=== PATIENT | female | born 1980 | race Caucasian/White ===

== ENCOUNTER 2025-04-01 22:58 | Inpatient (IN) | payer BC, SELFPAY ==
--- NOTE | ~2025-04-01 | MR_ITS ---
EXAMINATION: MR MRCP wo/w con/w 3D wo ind DATE: 04/03/2025 12:30 INDICATION: Assess for pancreatic intraductal papillary mucinous neoplasm TECHNIQUE: Magnetic resonance imaging (MRI) of the abdomen was performed without and with 15 mL Multihance intravenous contrast. Sequences included coronal T2- weighted SS-FSE, coronal T2-weighted FS SS-FSE, coronal T2-weighted FS FIESTA, axial T2-weighted FS FIESTA, axial T2-weighted FIESTA, sagittal T2-weighted SS- FSE, axial T1-weighted dual-echo FSPGR, axial T2-weighted SS-FSE, axial T1- weighted LAVA, axial T2-weighted STIR FSE. Thick-slab T2-weighted FRFSE-XL images were obtained for magnetic resonance cholangiopancreatography (MRCP). Rotating maximum intensity projection 3-D reconstructions of the volumetric data were created by the technologist. Postcontrast sequences included a time course of axial T1-weighted LAVA. COMPARISON: CT dated 04/02/2025 FINDINGS: ABDOMEN MRI: Heart size is normal. No pericardial or pleural effusion. Liver, gallbladder, spleen, bilateral adrenal glands and kidneys are normal. There is prominent peripancreatic edema consistent with acute interstitial pancreatitis. The retroperitoneal edema extends inferiorly and laterally along the bilateral anterior pararenal spaces with moderate left-sided and mild right-sided perinephric stranding. Pancreas remains normal with homogeneous parenchymal enhancement with no regions of necrosis. No discrete pancreatic lesions with no loculated acute peripancreatic fluid collections or abscess. Visualized portions of bowels are unremarkable. No pathologically enlarged abdominal lymphadenopathy. 15 degree thoracolumbar levoscoliosis. Bone marrow signal is normal throughout. ABDOMEN MRCP: No intrahepatic biliary ductal dilation. The common bile duct is also normal in caliber measuring up to 3 mm in maximal diameter with no evident choledocholithiasis. Main pancreatic duct is also normal in caliber. IMPRESSION: 1. Radiographically uncomplicated acute interstitial pancreatitis. Reviewed, dictated and finalized at location A.
--- NOTE | ~2025-04-01 | US_ITS ---
US abdomen limited EXAMINATION: US Abdomen limited INDICATION: Rule out biliary sludge PROCEDURE: Realtime High Resolution abdomen ultrasound. COMPARISON: No prior studies for comparison FINDINGS: Hepatopedal flow in the portal vein. Gallbladder wall is not thickened. Common duct measures 2.4 cm. No Post's sign. Liver measures 14.9 cm. Visualized pancreas is unremarkable. Visualized liver is unremarkable. No bowel wall thickening. No sludge identified in the gallbladder. IMPRESSION: 1. Unremarkable study. If symptoms persist or worsen, consider a short-term follow-up study or additional imaging for further assessment. Reviewed, dictated and finalized at location Q. IMPRESSION: 1. Unremarkable study. If symptoms persist or worsen, consider a short-term follow-up study or additio nal imaging for further assessment.
--- NOTE | ~2025-04-01 | CT_ITS ---
EXAMINATION: CT abdomen pelvis w con DATE: 04/02/2025 00:56 INDICATION: Right upper quadrant pain. Nausea and vomiting. TECHNIQUE: Computed tomography (CT) of the abdomen and pelvis was performed with 100 cc Omnipaque 350 intravenous contrast. The dose-length product was 235.44 mGy-cm. Automated exposure control and iterative reconstruction technique were employed. COMPARISON: None. FINDINGS: Lung bases unremarkable. Heart size normal. No significant pleural or pericardial effusion. The liver, spleen, kidneys and adrenal glands are unremarkable. There is mild pancreatitis. No pseudocyst or abscess formation. Nonobstructive bowel gas pattern. No lymphadenopathy. No significant vascular abnormality. Fatty infiltration of the liver. IMPRESSION: 1. Mild acute uncomplicated pancreatitis. Reviewed, dictated and finalized at location O.
[2025-04-01 23:01] VITALS: BP 127/80; PULSE 78; RESP 20; TEMP 36.1; O2SAT 98
--- NOTE | 2025-04-01 23:11 | ECG_ITS ---
Test Date: 2025-04-01 23:24:23 Measurements Intervals [place] Rate: 73 P: 133 UT: 140 QRS: 123 QRSD: 88 T: 123 QT: 373 QTc: 412 Interpretive Statements SINUS RHYTHM WITH SINUS ARRHYTHMIA LIMB LEAD REVERSAL POSSIBLE RIGHT VENTRICULAR CONDUCTION DELAY BORDERLINE T WAVE ABNORMALITY- ANTERIOR LEADS BASELINE ARTIFACT- I, III, AVR, AVL, AVF BORDERLINE ECG No previous ECG available for comparison Electronically Signed On 04-02-2025 06:40:14 CDT by Timmy Vaz D.O.
[2025-04-01 23:15] VITALS: BP 123/77; PULSE 72; RESP 12; O2SAT 100
[2025-04-01 23:18] LABS: Hematocrit 40.4 % (37.0-47.0); Hemoglobin 13.3 g/dL (12.0-15.0); Immature Granulocyte Percent A 0.4 % (0-0.5); Lymphocytes Absolute Auto 3.04 K/mm3 (0.9-3.2); Mean Corpuscular HGB Conc 32.9 g/dl (32-36); Mean Corpuscular Hemoglobin 31.1 pg (26-34); Mean Corpuscular Volume 94.6 fl (80-100); Nucleated Red Blood Cells Absolute Auto 0.000 K/mm3 (0.0-0.012); Nucleated Red Blood Cells Perc 0.0 % (0.0-0.2); Platelet Count Result 377 k/mm3 (150-375); Red Blood Count 4.27 M/mm3 (4.2-5.4); White Blood Count 13.3 K/mm3 (4.5-10.0)
[2025-04-01 23:28] LABS: Alanine Aminotransferase 18 U/L (6-35); Albumin Level 4.0 g/dL (3.5-5.1); Alkaline Phosphatase 48 U/L (38-126); Anion Gap 7 mmol/L (4-12); Aspartate Amino Transferase 31 U/L (14-36); Bilirubin,Total 0.3 mg/dL (0.2-1.3); Blood Urea Nitrogen 16 mg/dL (7-17); Calcium 9.3 mg/dL (8.4-10.2); Carbon Dioxide 28 mmol/L (22-30); Chloride 101 mmol/L (98-107); Estimated CRCL calculation 63 ml/min; Estimated Glomerular Filt Rate > 60; Glucose 123 mg/dL (65-110); Magnesium 1.8 mg/dL (1.6-2.3); Potassium 3.9 mmol/L (3.4-5.0); Sodium 136 mmol/L (137-145); Total Protein 7.1 g/dL (6.3-8.2)
[2025-04-01 23:30] VITALS: BP 141/88; PULSE 66; RESP 18; O2SAT 100
--- OUTSIDE RECORDS SUMMARY | 2025-04-01 23:35 | XMS_ITS | Clinical Summary ---
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 Gender Identity Not on file Sexual Orientation Not on file Plan of Treatment Health Maintenance Due Date Last Done Comments Hepatitis C Virus (HCV) Screening 1981 TdaP Immunization 1981 Hepatitis B Immunization (1 of 3 - 19+ 3-dose series) 2000 Pap Smear 2002 Human Papillomavirus (HPV) Immunization (1 - 3-dose SCDM series) 2008 Cervical Cancer Screening (CCS) 2011 HPV/Cotest 2011 SARS-COV-2 Immunization ( season) 2024 Influenza Immunization (#1) 04/07/202506/07, 06/14/2018, 06/15/2017, Additional history exists Respiratory Syncytial Virus (RSV) Immunization (Adult) (1 - 1-dose 75+ series) 2056 Meningococcal Immunization (ACWY) Aged Out No longer eligible based on patient's age to complete this topic Pneumococcal Immunization Combined Aged Out No longer eligible based on patient's age to complete this topic Rotavirus Immunization Aged Out No lo nger eligible based on patient's age to complete this topic
--- OUTSIDE RECORDS SUMMARY | 2025-04-01 23:35 | XMS_ITS | Clinical Summary ---
Author Organization [facility] [employer] Address [address] [place] [address] Care Team Providers Care Sawsmith Name Role Phone Tre Mcgowan MD Primary Care Provider [phone] Source Comments [facility],non-owned Affiliates and Associated Physician Practices is amultiple site organization consisting of ambulatory clinics and hospital sitesin [place], [place], [place] and [place]. This disclosure is being madepursuant to the Care Everywhere program and may not contain all information available regarding this patient. Last updated 18.[facility] [employer] Allergies Active Allergy Reactions Criticality Noted Date Comments Sulfa Drugs Urticaria Medium 10/08/2018 Medications * Be aware that medications may not be up to date on this document. Alwaysverify current medications with the patient. folic acid (FOLVITE) 1 MG tablet Take 1 mg by mouth once daily 9 Active LARISSIA 0.1-20 MG-MCG tablet 9 Active SYNTHROID 50 MCG tablet Take 50 mcg by mouth daily before breakfast 9 Active VYVANSE 20 MG capsule Take 20 mg by mouth every morning 9 Active VITAMIN D, CHOLECALCIFEROL , PO Take 1,000 Units by mouth once daily Active Cyanocobalamin (B-12) 100 MCG Take 100 mcg by mouth once daily Active Probiotic Product (ALIGN PO) Take 1 tablet by mouth once daily Active ferrous sulfate 325 (65 FE) MG tabletIndicatio ns:Other iron deficiency anemia Take 1 tablet by mouth daily with breakfast 30 tablet 2 9 Active Active Problems Problem Noted Date Diagnosed Date Intestinal malabsorption 10/08/2018 Epigastric abdominal pain 10/08/2018 Normocytic anemia 10/08/2018 Malignant neoplasm of ovary 10/08/2018 Gastroesophageal reflux disease without esophagi tis 10/08/2018 Resolved Problems Problem Noted Date Diagnosed Date Resolved Date Diarrhea 10/08/2018 11/05/2018 Family History Medical History Relation Name Comments Thyroid Disease Maternal Grandmother Arthritis - Rheumatoid Mother Lupus Mother Sjogren's Syndrome Mother Thyroid Disease Mother Goitre, s/p thyroid surgery. Hashimatos. 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 Gender Identity Not on file Sexual Orientation Not on file Last Filed Vital Signs Vital Sign Reading Time Taken Comments Blood Pressure 110/70 10/19/2018 10:13 AM CDT Pulse 73 10/12/2018 12:23 PM FREELANCE OPERATOR Temperature 36.4 C (97.6 F) 10/19/2018 10:13 AM CDT Respiratory Rate 12 10/19/2018 10:13 AM CDT Oxygen Saturation 100% 10/12/2018 12:23 PM FREELANCE OPERATOR Inhaled Oxygen Concentration - - Weight 51.3 kg (113 lb 1.6 oz) 10/19/2018 10:13 AM CDT Height 166.4 cm (5' 5.5) 10/19/2018 10:13 AM CD T Body Mass Index 18.53 10/19/2018 10:13 AM CDT Plan of Treatment Health Maintenance Due Date Last Done Comments LIPID TESTING 1981 MAMMOGRAM 1981 HIV SCREENING 1996 HEPATITIS C SCREENING 09/10/1999 DTAP/TDAP/TD VACCINES (1 - Tdap) 2000 HEPATITIS B VACCINE (1 of 3 - 19+ 3-dose series) 2000 HPV VACCINE (1 - 3-dose SCDM series) 2008 COVID-19 VACCINE ( - 2023-25 season) 2024 DEPRESSION SCREENING 08/07/2024 INFLUENZA VACCINE (#1) 2025 8, 06/15/2017, 07/09/2015, Additional history exists ZOSTER VACCINE (1 of 2) 2031 HIB VACCINE Aged Out No longer eligi ble based on patient's age to complete this topic MENINGOCOCCAL (Group B) VACCINE SHARED DECISION-MAKING Aged Out No longer eligible based on patient's age to complete this topic MENINGOCOCCAL GROUPS A/C/Y/W VACCINE Aged Out No longer eligible based on patient's age to complete this topic PNEUMOCOCCAL VACCINE Aged Out No long er eligible based on patient's age to complete [place] [address] [place] [address] [facility] Care Teams Sawsmith Relationship Specialty Start Date End Date Tre cMgowan MD PCP - General 10/08/18
--- OUTSIDE RECORDS SUMMARY | 2025-04-01 23:35 | XMS_ITS | Clinical Summary ---
Author Organization [facility] [address] Address [address] [facility] [place] [address] Care Team Providers Care Home Paraprofessional Name Role Phone Tre Mcgowan MD Primary Care Provider [phone] Joya Rae MD Unavailable [phone] Allergies Active Allergy Reactions Criticality Noted Date Comments Gluten Stomach upset Low 05/21/2019 Stomach/GI Upset Sulfa (Sulfonamide Antibiotics) Hives High 10/24/2009 Medications Synthroid 50 mcg tablet TAKE 1 TABLET BY MOUTH EVERY DAY DIRECTED 30 tablet 3 1 Active Vyvanse 30 mg capsule 0 3 Active multivitamin tabletIndications: Vitamin Deficiency Prevention Take 1 tablet by mouth Active L norgest/e.estradio L-e.estrad 0.1 mg-20 mcg (84)/10 mcg (7) tablets,dose pack,3 monthIndications:E ncounter for routine examination for contraception Take 1 tablet by mouth daily 84 tablet 4 4 Active Active Problems No known active problems Surgical History Surgery Date Site/Laterality Comments LEFT OOPHORECTOMY 09/07/2011 - 10/05/2011 L/s LSO seromucinous borderline tumor Medical History Medical History Date Comments Celiac disease 09/2018 Family History Medical History Relation Name Comments No Known Problems Father Dayna's thyroiditis Mother Lupus Mother Rheum arthritis Mother Sjogren's syndrome Mother Cancer Other 1 Reported Family History Of Cancer - PGM (Added by TW Conv) Thyroid disease Other 2 Thyroid Diso rder - Mother (Added by TW Conv) Relation Name Status Comments Father Alive Mother Alive Other 1 Other 2 Alive Social History Tobacco Use Types Packs/Day Years Used Date Smoking Tobacco: Former Passive Smoke Exposure: Never Smokeless Tobacco: Never Tobacco Cessation:Counseling Given: Not Answered Comments No Sex and Gender Information Value Date Recorded Sex Assigned at Not on file 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 Comments:No observed a nomalies 014 Term 38w 4d 2h 35m/1h 01m/ 2.693 kg (5 lb 15 oz) F Vag-S pont Epidur al N Livin g 9 10 BROWN ,GIRL 1JESS ICA Delivery Location:[facility] Comments:No observed a nomalies Comments 10/25/09 Blu HK @36w3 d, spont labor. No lac. 01/18/14 Mitchel Coffey HK@38.4wks, spont labor. 5-15lbs. Did great! Last Filed Vital Signs Vital Sign Reading Time Taken Comments Blood Pressure 116/78 05/17/2024 11:10 AM CDT Pulse 92 07/15/2020 10:26 AM TIME CLOCK REPAIRER Temperature 36.8 C (98.2 F) 07/15/2020 10:26 AM TIME CLOCK REPAIRER Respiratory Rate - - Oxygen Saturation 100% 07/15/2020 10:26 AM TIME CLOCK REPAIRER Inhaled Oxygen Concentration - - Weight 60.3 kg (133 lb) 05/17/2024 11:10 AM CDT Height 165.1 cm (5' 5) 05/17/2024 11:10 AM CDT Body Mass Index 22.13 05/17/2024 11:10 AM CDT Plan of Treatment Health Maintenance Due Date Last Done Comments Depression Screening 1981 Hepatitis C Screening 1981 Varicella Vaccines (1 of 2 - 13+ 2-dose series) 1994 Hepatitis B Screening 1999 HPV Vaccines (1 - 3-dose SCDM series) 2008 DTaP/Tdap/Td Vaccine (2 - Td or Tdap) 01/20/2024 01/19/2014 Covid-19 Vaccine ( season) 2024 06/11/2021, 11/23/2020, 11/02/2020 Breast Cancer Screening-Mammogram 07/04/2024 07/04/2023, 12/02/2021 Influenza Vaccine (#1) 2025 , 06/08/2022, 06/03/2021, Additional history exists Cervical Cancer Screening 05/17/20252023, 11/21/2022, 11/11/2021 Regular Well Visit/Exam 18-64 05/17/2025 05/17/2024, 11/21/2022, 11/11/2021 Pneumococcal vaccine <65 Aged Out No longer eligible based on patient's age to complete this topic Procedures Procedure Name Priority Date/Time Associated Diagnosis Comments THINPREP IMAGING PAP AND HPV MRNA E6/E7 REFLEX HPV 16,18/45 Routine 05/17/2024 11:28 AM CDT Routine gynecological examination SCREENING MAMMOGRAM BILATERAL W DAVID Schedule Routine, Read Routine (OP Routine) 07/04/2023 11:44 AM TIME CLOCK REPAIRER Screening mammogram, encounter for from Last 3 Months or Most Recently Relevant to Health Maintenance Results * ThinPrep(R) Imaging Pap and HPV mRNA E6/E7 Reflex HPV 16,18/45 (05/17/2024 11:28 AM CDT) CLINICAL INFORMATION: [facility] Comment:43Y/O WWE LMP [facility] Comment:NONE GIVEN Previous Pap [facility] Comment:NONE GIVEN Prev. Bx [facility] Comment:NONE GIVEN SOURCE: [facility] Comment:None given Pap, specimen adequacy [facility] Comment: Satisfactory for evaluation. Endocervical/transformation zone component absent. Age and/or menstrual status not provided HPV interp [facility] Comment: Cytology Results: Negative for intraepithelial lesion or malignancy. COMMENTS [facility] Comment: This Pap test has been evaluated with computer assisted technology. Quick [employer] Comment: LM, CT(ASCP) CT screening location: [place] [address] [address] [place] [address] Comment [facility] Comment: EXPLANATORY NOTE: The Pap is a screening test for cervical cancer. It is not a diagnostic test and is subject to false negative and false positive results. It is most reliable when a satisfactory sample, regularly obtained, is submitted with relevant clinical findings and history, and when the Pap result is evaluated along with historic and current clinical information. Human papillomavirus RNA, High Risk E6/E7 Not Detected Not Detected [facility] Comment: Methodology: Gill Box Tender-Mediated Amplification This assay detects E6/E7 viral messenger RNA (mRNA) from 14 high-risk HPV types (16,18,31,33,35,39,45,51,52,56,58,59,66,68). Cervical sources are required for HPV testing. If a vaginal source from a patient who has had a total hysterectomy with removal of cervix was submitted, please contact the testing laboratory for alternative testing options. For additional information, please refer to http://education.INRIX/faq/BVK344x3 (This link if provided for information/ educational purposes only.) Swab (Cervical) 05/17/2024 1 1:28 AM CDT 05/17/2024 11:45 PM CDT us Joya Rae MD LAB CYTOLOGY ORDERABLES F inal Result [facility] [address] [address] [place] [address] [facility] [address] [address] [phone] * Screening Mammogram Bilateral W David (07/04/2023 11:44 AM TIME CLOCK REPAIRER) Anatomical Region Laterality Modality Breast Bilateral Mammography Narrative 07/04/2023 1:47 PM TIME CLOCK REPAIRER Examination: Screening Mammogram Bilateral W David: 07/04/23 Clinical: Screening mammogram, encounter for. Prior Study Comparisons: Comparison was made to the prior available relevant studies at the time of interpretation. Findings: Bilateral No significant masses, malignant type calcifications, skin thickening, nipple retraction, or significant lymphadenopathy is noted in either breast. The CAD review showed no significant findings. The breasts are heterogeneously dense, which may obscure small masses. The patient will be notified of results by letter. Impression: BI-RADS ATLAS category (overall): 1 - Negative There is no mammographic evidence of malignancy. Routine Screening Mammogram in 1 Yr is recommended for bilateral Overall Assessment: 1 - Negative us Self Screening Mammogram IMG MAMMO PROCEDURES Fi nal Result from Last 3 Months or Most Recently Relevant to Health [place] [address] [place] [address] [place] [address] [place] [address] [employer] Care Teams Home Paraprofessional Relationship Specialty Start Date End Date Tre Mcgowan [place] [address] PCP - General 07/15/20 [place] [address] [place] [address] Consulting Physician Obstetrics and Gynecology 10/05/21
--- OUTSIDE RECORDS SUMMARY | 2025-04-01 23:35 | XMS_ITS | Clinical Summary ---
Author Organization [facility] Address [address] [place] [phone] Phone Care Team Providers Care Tutoring Assistant Name Role Phone Unavailable Primary Care Provider Unavailabl e Allergies Active Allergy Reactions Criticality Noted Date Comments Sulfa (Sulfonamide Antibiotics) Hives High 10/06 Medications vit-iron fumarate-fa (SHRUTI ) 28-0.8 mg Oral Tab Take 1 Tab by mouth daily. Active oxyCODONE-aceta minophen (PERCOCET) 5-325 mg tablet Take 1 Tab by mouth every 4 hours as needed for Pain, Moderate (For Pain Scale 4-6). 30 Tab 0 01/19/2014 Active ibuprofen (MOTRIN) 600 mg tablet Take 1 Tab by mouth every 6 hours as needed for Pain. 60 Tab 0 01/19/2014 Active docusate sodium (COLACE) 100 mg capsule Take 1 Cap by mouth 2 times daily. 60 Cap 0 01/19/2014 Active Active Problems Problem Noted Date Diagnosed Date Labor, O+, GBS neg, Hx of Ovarian CA 2011 [place]: bsus: DREW 12 cm, LR, gen diet, repeat drew in am 12/26/2013 Ovarian mass 09/07/2011 Immunizations Immunization Administration Dates Next Due (ADACEL/BOOSTRIX)(10 YR UP) TDAP VACCINE, 0.5ML, IM 01/19/2014 Influenza A (H1N1) Vaccine IM 05/25/2009 Influenza Seasonal Unspecified Formulation IM ,06/29/2009 Family History Medical History Relation Name Comments Healthy Daughter Healthy Father Arthritis-rheumatoid Maternal Aunt Arthritis-rheumatoid Mother SLE Mother Thyroid Disease Mother Relation Name Status Comments Daughter Alive Father Alive Maternal Aunt Mother Alive Other Social History Tobacco Use Types Packs/Day Years Used Date Smoking Tobacco: Never Smokeless Tobacco: Never Alcohol Use Standard Drinks/Week Comments No 0 (1 standard drink = 0.6 oz pur e alcohol) Comments No Sex and Gender Information Value Date Recorded Sex Assigned at Not on file 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 Gender Identity Not on file Sexual Orientation Not on file Occupation Industry Job Start Date Job End Date Not on file Not on file Not on file Not on file Not on file Not on file Not on file Not on file Last Filed Vital Signs Vital Sign Reading Time Taken Comments Blood Pressure 106/64 01/20/2014 7:30 AM CDT Pulse 66 01/20/2014 7:30 AM CDT Temperature 36.7 C (98 F) 01/20/2014 7:30 AM CDT Respiratory Rate 18 01/20/2014 7:30 AM CDT Oxygen Saturation 100% 01/18/2014 1:53 AM CDT Inhaled Oxygen Concentration - - Weight 65.8 kg (145 lb) 01/18/2014 1:25 AM CDT Height 167.6 cm (5' 6) 01/18/2014 1:25 AM CDT Body Mass Index 23.4 01/18/2014 1:25 AM CDT Plan of Treatment Health Maintenance Due Date Last Done Comments HEPATITIS B VACCINES (1 of 3 - 19+ 3-dose series) 2000 HPV/Cotest (21-29) 2002 HPV VACCINES (1 - 3-dose SCDM series) 2008 CERVICAL CANCER SCREENING 2011 HPV/Cotest (30-65) 2011 PAP SMEAR 2011 BREAST CANCER SCREENING 2021 DTAP/TDAP/TD VACCINES (2 - Td or Tdap) 01/20/2024 INFLUENZA VACCINE (#1) 2025 09/13/2013, 2008 Medical Devices Implanted Type Area Sheet Rock Finisher Device Identifier Shelf Expiration Date Model / Serial / Lot Barrier Interceed Adh 3x4in [id number] Implanted:Qty: 1 on 09/07/2011 by Joya Rae MD at [facility] [employer]ion Barrier [employer] 02/04/2016 [id number] / / [id number] Insurance [facility] OPTIONS PPO [id number] Advance Directives For more information, please contact: [phone] * Full Code (Latest Code Status on File) Date Activated Date Inactivated Comments 01/18/2014 5:48 AM 01/20/2014 1:29 PM * Full Code Date Activated Date Inactivated Comments 01/18/2014 2:18 AM 01/18/2014 5:47 AM * Full Code Date Activated Date Inactivated Comments 09/07/2011 11:13 AM 09/07/2011 5:37 PM * Full Code Date Activated Date Inactivated Comments 09/07/2011 9:05 AM 09/07/2011 11:13 AM * Full Code Date Activated Date Inactivated Comments 09/07/2011 8:35 AM 09/07/2011 9:05 AM
[2025-04-01 23:45] VITALS: BP 129/86; PULSE 73; RESP 17; O2SAT 100
[2025-04-01] MEDS: SODIUM CHLORIDE 0.9% IV 1,000 ML 999 ML IV CONT (23:56)
[2025-04-01] MEDS: ONDANSETRON INJ 4 MG/2 ML VIAL IV PUSH (23:56)
[2025-04-01] MEDS: MORPHINE SULFATE (*CRX) 4 MG/ML INJ IV PUSH (23:57)
[2025-04-02] VITALS (12 sets, daily range): BP systolic 105–127; BP diastolic 63–85; PULSE 61–83; RESP 12–19; TEMP 36.3–36.5; O2SAT 99–100; BMI 22.4
--- NOTE | 2025-04-02 00:13 | ED.ABDPAIN ---
HPI - Abdominal Pain General Chief Complaint: Abdominal Pain Stated Complaint: abd. pain w/ N/V Time Seen by Provider: 04/01/25 23:11 History of Present Illness HPI narrative: Patient is a 44-year-old female who presents emergency department this evening complaining of severe abdominal pain which started today. Denies any similar symptoms in the past. Denies any history of abdominal surgeries. When asked where the pain is, patient is unable to localize it states everywhere. Patient admits to nausea, vomiting and some loose stools as well. Denies any sick contacts at home or anybody with similar symptoms. No recent illness or fevers or chills. Related Data Allergies Allergy/AdvReac Type Severity Reaction Status Date / Time Sulfa (Sulfonamide Allergy Mild Hives Verified 04/01/25 23:56 Antibiotics) Review of Systems Review of Systems: All systems are reviewed and are negative unless stated otherwise in the HPI. Exam Narrative: General: Alert, awake, afebrile, in severe distress secondary to pain. HEENT: PERRL, no rhinorrhea, no post nasal drip, oropharynx clear. Neck: Trachea midline, no JVD, no lymphadenopathy. Cardiovascular: Regular rate and rhythm, no murmurs, rubs or gallops, no peripheral edema. Respiratory: Clear to auscultation bilaterally, no tachypnea, no wheezing, no rhonchi, no rubs, no respiratory distress. Abdomen: Soft, tenderness palpation over the mid epigastric region, nondistended, no rebound, no guarding, no peritoneal signs. Musculoskeletal: No joint swelling or deformity, normal muscle tone. Skin: No rashes or petechia, no signs of infection. Psychiatric: Alert and oriented, normal behavior and judgment for situation. Neurological: Alert and oriented to person, place, and time. Follows all commands. No focal deficits, speech is clear and fluent. Course Vital Signs Vital signs: Vital Signs Temperature 97.0 F L 04/01/25 23:01 Pulse Rate 78 04/01/25 23:01 Respiratory Rate 20 04/01/25 23:01 Blood Pressure 127/80 04/01/25 23:01 Pulse Oximetry 98 04/01/25 23:01 Oxygen Delivery Room Air 04/01/25 23:01 Temperature 97.0 F L 04/01/25 23:01 Pulse Rate 78 04/01/25 23:01 Respiratory Rate 20 04/01/25 23:01 Blood Pressure 127/80 04/01/25 23:01 Pulse Oximetry 98 04/01/25 23:01 Oxygen Delivery Room Air 04/01/25 23:01 MDM - Abdominal Pain MDM Narrative Medical decision making narrative: The patient was evaluated by myself in the emergency department. History is obtained from patient who is an independent historian and physical exam was performed. External medical records were reviewed at this time. IV was established and pertinent tests were ordered. Patient was administered 4 mg of IV morphine 4 mg IV Zofran 1 L IV fluid bolus with normal saline. Patient continues to have pain at this time she was administered 20 mg IV Pepcid and 20 mg of IM Bentyl with some improvement of her symptoms. She also administered 0.5 mg of IV Dilaudid. Laboratory results obtained revealing a leukocytosis of 13.3 and a lipase level greater than 40,000 otherwise unremarkable. At this time a triglyceride level was added and was noted to be normal at 104. Imaging studies obtained included CT abdomen pelvis with IV contrast which was independently interpreted by me revealing acute pancreatitis, which is pending final radiology interpretation. Differential diagnosis considerations include cholecystitis, pancreatitis, gastritis, appendicitis. Comorbidities impacting this visit include none. I have evaluated and discussed social determinants of health with the patient that could potentially impact subsequent diagnosis and treatment plans. On repeat assessment of the patient, reevaluation revealed that the patient is doing well and is in no acute distress. Patient symptoms have improved since she arrived to our emergency department. Repeat vital signs were all reviewed and noted to be stable. Differential diagnosis and treatment plan were discussed with the patient at bedside. Patient agrees with discussion and after shared medical decision making agrees with admission. All questions were answered to the patient's satisfaction. Case was discussed with the on-call [employer]PER[employer] hospitalist Dk at 0230 and he accepted admission. Lab Data 04/01/25 23:12 04/01/25 23:12 Labs: Lab Results 04/01/25 04/02/25 04/02/25 Range/Units 23:12 00:32 00:33 WBC 13.3 H (4.5-10.0) K/mm3 RBC 4.27 (4.2-5.4) M/mm3 Hgb 13.3 (12.0-15.0) g/dL Hct 40.4 (37.0-47.0) % MCV 94.6 (80-100) fl MCH 31.1 (26-34) pg MCHC 32.9 (32-36) g/dl RDW 11.9 (11.5-14.5) % Plt Count 377 H (150-375) k/mm3 MPV 8.7 (7.4-10.4) fl Immature Gran % (Auto) 0.4 (0-0.5) % Neut % (Auto) 70.1 (45.5-73.1) % Lymph % (Auto) 22.8 (18.3-44.2) % [place] % (Auto) 5.2 (2.6-8.5) % Eos % (Auto) 1.0 (0-4.4) % Baso % (Auto) 0.5 (0.2-1.2) % Lymph # (Auto) 3.04 (0.9-3.2) K/mm3 [place] # (Auto) 0.7 H (0.1-0.6) K/mm3 Eos # (Auto) 0.1 (0-0.3) K/mm3 Baso # (Auto) 0.1 (0.0-0.1) K/mm3 Abs Immat Gran (auto) 0.05 H (0.00-0.031) K/mm3 Absolute Neuts (auto) 9.4 H (1.3-6.7) K/mm3 Absolute Nucleated RBC 0.000 (0.0-0.012) K/mm3 Nucleated RBC % 0.0 (0.0-0.2) % Sodium 136 L (137-145) mmol/L Potassium 3.9 (3.4-5.0) mmol/L Chloride 101 (98-107) mmol/L Carbon Dioxide 28 (22-30) mmol/L Anion Gap 7 (4-12) mmol/L BUN 16 (7-17) mg/dL Creatinine 0.91 (0.7-1.0) mg/dL Estim Creat Clear Calc 63 ml/min Estimated GFR > 60 (59 - ) Glucose 123 H (65-110) mg/dL Calcium 9.3 (8.4-10.2) mg/dL Magnesium 1.8 (1.6-2.3) mg/dL Total Bilirubin 0.3 (0.2-1.3) mg/dL AST 31 (14-36) U/L ALT 18 (6-35) U/L Alkaline Phosphatase 48 (38-126) U/L Total Protein 7.1 (6.3-8.2) g/dL Albumin 4.0 (3.5-5.1) g/dL Triglycerides 104 (<150) mg/dL Lipase > 98846 H (23-300) U/L Serum HCG, Qual Negative Urine Color Yellow (Yellow) Urine Appearance Cloudy H (Clear) Urine pH 7.0 (5.0-9.0) Ur Specific [place] 1.019 (1.001-1.035) Urine Protein 1+ H (Negative) mg/dL Urine Glucose (UA) Negative (Negative) mg/dL Urine Ketones 2+ H (Negative) mg/dL Ur Blood (Man) 1+ H (Negative) Urine Nitrate Negative (Negative) Urine Bilirubin Negative (Negative) Urine Urobilinogen 0.2 (<2.0) mg/dL Leukocyte Esterase Rfl 1+ H (Negative) JOSH/UL Urine RBC 3-5 H (0-2) /hpf Urine WBC 11-20 H (0-3) /hpf Ur Squamous Epith Cells Few (Few) /hpf Urine Bacteria 1+ H /hpf Urine Casts 0-2 POC Urine HCG, Qual Negative (Negative) Discharge Plan Discharge Clinical Impression: UTI (urinary tract infection), Acute pancreatitis Patient Disposition: Still a Patient Condition: Improved Instructions: Antibiotic Form Patient Language: Estonian Follow-up/Referrals: Juan M,Tre Wright MD [Primary Care Provider] Time of Disposition: 02:20
[2025-04-02 00:27] LABS: SPREG INTERNAL CONTROL Positive; Serum Qual hCG Negative
[2025-04-02] MEDS: FAMOTIDINE 20 MG/2 ML VIAL IV PUSH (00:30)
[2025-04-02] MEDS: DICYCLOMINE HCL INJ 20 MG/2 ML VIAL IM (00:31)
[2025-04-02 00:35] LABS: BEDSIDEPREGUCG Negative (Negative)
[2025-04-02 00:42] LABS: Add Urine Microscopic? YES; Appearance Urine Cloudy (Clear); Glucose Urine UA Negative (Negative); Leukocyte Esterase Ur 1+ LEU/UL (Negative); Nitrate Urine Negative (Negative); Non Pathogenic Casts 0-2; Specific Grav Ur 1.019 (1.001-1.035)
[2025-04-02 00:43] LABS: Lipase > 40000 U/L (23-300)
[2025-04-02] MEDS: HYDROmorphone HCL INJ (*CRX) 1 MG/ML SYR 0.5 MG IV PUSH ×5 (01:00→20:46)
[2025-04-02] MEDS: SODIUM CHLORIDE 0.9% IV 1,000 ML 999 ML IV CONT (01:08)
[2025-04-02] MEDS: cefTRIAXone 1 GM in SODIUM CHLORIDE 0.9% IV 50 ML 100 ML IVPB ×2 (01:08→05:45)
[2025-04-02] MEDS: LACTATED RINGERS 1,000 ML 200 ML IV CONT (02:04)
[2025-04-02 02:49] LABS: Triglycerides 104 mg/dL (<150)
[2025-04-02] MEDS: ONDANSETRON INJ 4 MG/2 ML VIAL IV PUSH ×2 (03:09→08:33)
--- NOTE | 2025-04-02 04:11 | ADMGEN ---
This patient, Caron Grullon, was admitted to [facility] Surg Room 327-01. Patient/family oriented to hospital policies and general routines including ID bracelet, bed and alarms, visiting hours, pain management, procedures, bathroom and other care routines, personal items, smoking policy, room service/diet, and visiting hours. Information on how to activate the Rapid Response Team has been discussed. Patient/Family are encouraged to report perceived risks to care and to ask questions if they do not understand what they are told or what they should do.
[2025-04-02] MEDS: LACTATED RINGERS 1,000 ML 125 ML IV CONT ×2 (05:45→14:00)
[2025-04-02 06:44] LABS: Hematocrit 36.7 % (37.0-47.0); Hemoglobin 12.1 g/dL (12.0-15.0); Immature Granulocyte Percent A 0.5 % (0-0.5); Lymphocytes Absolute Auto 0.99 K/mm3 (0.9-3.2); Mean Corpuscular HGB Conc 33.0 g/dl (32-36); Mean Corpuscular Hemoglobin 31.6 pg (26-34); Mean Corpuscular Volume 95.8 fl (80-100); Nucleated Red Blood Cells Absolute Auto 0.000 K/mm3 (0.0-0.012); Nucleated Red Blood Cells Perc 0.0 % (0.0-0.2); Platelet Count Result 314 k/mm3 (150-375); Red Blood Count 3.83 M/mm3 (4.2-5.4); White Blood Count 10.6 K/mm3 (4.5-10.0)
[2025-04-02 06:59] LABS: Hemoglobin A1C 5.2 % (<5.7)
[2025-04-02 07:09] LABS: Alanine Aminotransferase 17 U/L (6-35); Albumin Level 3.2 g/dL (3.5-5.1); Alkaline Phosphatase 46 U/L (38-126); Anion Gap 5 mmol/L (4-12); Aspartate Amino Transferase 29 U/L (14-36); Bilirubin,Total 0.3 mg/dL (0.2-1.3); Blood Urea Nitrogen 10 mg/dL (7-17); CRP 1.2 mg/dL (<1.0); Calcium 7.8 mg/dL (8.4-10.2); Carbon Dioxide 23 mmol/L (22-30); Chloride 103 mmol/L (98-107); Estimated CRCL calculation 83 ml/min; Estimated Glomerular Filt Rate > 60; Glucose 132 mg/dL (65-110); Magnesium 1.5 mg/dL (1.6-2.3); Potassium 3.8 mmol/L (3.4-5.0); Sodium 131 mmol/L (137-145); Total Protein 5.9 g/dL (6.3-8.2)
[2025-04-02 07:16] LABS: Procalcitonin < 0.0 ng/mL
--- NOTE | 2025-04-02 07:28 | P.HP_ITS ---
H&P: HPI History of Present Illness Date/Time: 04/02/25 07:28 Chief Complaint: abd pain Narrative: 44-year-old female admitted from ED with severe abdominal pain which started yesterday. She never had similar episodes in the past, no abdominal surgeries. Pain was generalized. Patient reports nausea, vomiting and some loose stools as well. No recent illness or fevers or chills. NOt on any GLP-1. Drinks 2 drinks a week, seltzer. Review of Systems Review of Systems: All systems reviewed & are unremarkable except as noted in HPI and below PMFSH Social History Social History Smoking status: Never smoker Alcohol intake: current Drinks per week: 2 Substance use: never Substance use type: does not use Lack of Transportation: No Lack of Food: Never True Current Housing: I Have Housing Concerned About Future Housing: No Difficulty Paying Gas/Electric Bills: No Difficulty Paying for Meds: No Currently Unemployed: No Education: Decline to Answer Difficulty w/ Childcare or Family Care: No Spiritual care concerns: No Meds Home Medications and Allergies Home Medications ?Medication ?Instructions ?Recorded ?Confirmed ?Type L norgest/E estradiol-E estrad 0.1 1 tablet PO HS 03/0804/02/25 History mg-20 mcg (84)/10 mcg (7) tabs,3mos levothyroxine 50 mcg tablet 50 mcg PO DAILY 04/02/25 0 04/02/25 History (Euthyrox) lisdexamfetamine 30 mg capsule 30 mg PO DAILY 04/02/25 04/02/25 History Allergies Allergy/AdvReac Type Severity Reaction Status Date / Time Sulfa (Sulfonamide Allergy Mild Hives Verified 04/01/25 23:56 Antibiotics) Vital Signs Vital Signs - 24 hr 04/01/25 23:01 04/01/25 23:15 04/01/25 23:30 Temperature 97.0 F L Pulse Rate 78 72 66 Respiratory Rate 20 12 18 Blood Pressure 127/80 123/77 141/88 H Pulse Oximetry 98 100 100 Oxygen Delivery Room Air 04/01/25 23:45 04/02/25 00:00 04/02/25 00:15 Temperature Pulse Rate 73 77 61 Respiratory Rate 17 19 17 Blood Pressure 129/86 116/79 116/79 Pulse Oximetry 100 100 100 Oxygen Delivery 04/02/25 00:30 04/02/25 00:45 04/02/25 02:03 Temperature Pulse Rate 68 64 83 Respiratory Rate 18 19 12 Blood Pressure 117/85 116/82 110/73 Pulse Oximetry 100 100 100 Oxygen Delivery 04/02/25 03:30 04/02/25 04:00 04/02/25 04:00 Temperature 97.4 F L Pulse Rate 66 70 Respiratory Rate 14 18 Blood Pressure 119/84 127/71 Pulse Oximetry 100 99 Oxygen Delivery Room Air Exam Narrative: resting with eyes closed. Const: General: comfortable Neck: Thyroid: thyroid normal Resp: Effort & Inspection: normal respiratory effort Auscultation: clear to auscultation bilaterally Cardio: Rate: regular rate Rhythm: regular rhythm GI: GI Palp: Yes Tenderness to palpation present (GI) Skin: General skin exam: normal color Neuro: Speech: normal speech Motor exam (neuro): 5/5 motor strength present throughout Psych: Mental Status: mental status grossly normal Affect: normal affect H&P: Results Labs Labs: Short CBC 04/01/25 04/02/25 Range/Units 23:12 06:05 WBC 13.3 H 10.6 H (4.5-10.0) K/mm3 Hgb 13.3 12.1 (12.0-15.0) g/dL Hct 40.4 36.7 L (37.0-47.0) % Plt Count 377 H 314 (150-375) k/mm3 BMP 04/01/25 04/02/25 23:12 06:05 Sodium 136 L 131 L Potassium 3.9 3.8 Chloride 101 103 Carbon Dioxide 28 23 BUN 16 10 D Creatinine 0.91 0.68 L Glucose 123 H 132 H Calcium 9.3 7.8 L Liver Function 04/01/25 04/02/25 Range/Units 23:12 06:05 Total Bilirubin 0.3 0.3 (0.2-1.3) mg/dL AST 31 29 (14-36) U/L ALT 18 17 (6-35) U/L Alkaline Phosphatase 48 46 (38-126) U/L Albumin 4.0 3.2 L (3.5-5.1) g/dL Urine 04/02/25 Range/Units 00:32 Urine Color Yellow (Yellow) Urine Appearance Cloudy H (Clear) Urine pH 7.0 (5.0-9.0) Ur Specific [place] 1.019 (1.001-1.035) Urine Protein 1+ H (Negative) mg/dL Urine Glucose (UA) Negative (Negative) mg/dL Assessment and Plan Assessment and plan (1) Acute pancreatitis: Code(s): K85.90 - Acute pancreatitis without necrosis or infection, unspecified Status: Acute (2) UTI (urinary tract infection): Code(s): N39.0 - Urinary tract infection, site not specified Status: Acute Plan Pt is admitted from ED with abd pain. She received 4 mg of IV morphine 4 mg IV Zofran 1 L IV fluid bolus with normal saline. Received 20 mg IV Pepcid and 20 mg of IM Bentyl with some improvement of her symptoms. She also has IV Dilaudid PRN. WBC 13.3, lipase level greater than 40,000 - will trend. Triglyceride- 104. Imaging studies obtained included CT abdomen pelvis with IV contrast - acute pancreatitis Other differentials: cholecystitis, pancreatitis, gastritis, appendicitis. She was admitted for pain/nausea control and IV hydration. NPO GI consulted already Med lsit will be reconciled once completed Pt is a full code Quality VTE Prophylaxis VTE prophylaxis: mechanical ordered Hospitalist MIPS Advance Care Plan I have confirmed that the patient's Advanced Care Plan is present, code status is documented, or surrogate decision maker is listed in patient medical record.: Yes
[2025-04-02 07:52] LABS: Lipase 13415 U/L (23-300)
[2025-04-02] MEDS: PROMETHAZINE HCL 25 MG/ML AMPUL 12.5 MG IV PUSH ×2 (11:59→20:46)
--- NOTE | 2025-04-02 16:03 | WPDGICN ---
Assessment and Plan Assessment and plan (1) Acute pancreatitis: Code(s): K85.90 - Acute pancreatitis without necrosis or infection, unspecified Status: Acute Assessment and Plan: The two most common etiologies of acute pancreatitis, alcohol abuse and cholelithiasis/biliary sludge, have been excluded. Considering the patient's autoimmune background of hypothyroidism and celiac disease, autoimmune pancreatitis is a strong consideration. The differential diagnosis also includes structural lesions like pancreas divisum or IPMNs. To further evaluate, IgG4 levels and an MRCP have been ordered. The patient's current management includes intravenous lactated Ringer's solution and supportive analgesics. Early oral feeding will be initiated tomorrow, provided her clinical status continues to improve. Lipase is a parameter for initial diagnosis but prognosis is only given by her overall clinical status,diuresis, evidence (or lack of) SIRS, vital signs and hematocrit + BUN, which are normal now, indicating a good prognosis. GI Consult Note Consult date/time: 04/02/25 16:03 Reason for consult: acute pancreatitis HPI: Caron Grullon is a 44-year-old female with a medical history significant for celiac disease and hypothyroidism. She was in her usual state of health until yesterday, when she developed moderate to severe epigastric pain that radiated to her back and right upper quadrant. The pain was associated with severe nausea and vomiting. She was admitted for management, and initial labs revealed a C-reactive protein of 1.2. Her other lab values, including transaminases and triglyceride levels, were within normal limits. A CT scan showed mild interstitial pancreatitis, and a subsequent abdominal ultrasound revealed a normal gallbladder with no stones or sludge. The patient reports no history of significant alcohol use or illicit drug use. Her current medication for ADHD is not a known cause of acute pancreatitis. Review of Systems Review of Systems: All systems reviewed & are unremarkable except as noted in HPI and below PMFSH Social History Social History Smoking status: Never smoker Alcohol intake: current Drinks per week: 2 Substance use: never Substance use type: does not use Lack of Transportation: No Lack of Food: Never True Current Housing: I Have Housing Concerned About Future Housing: No Difficulty Paying Gas/Electric Bills: No Difficulty Paying for Meds: No Currently Unemployed: No Education: Decline to Answer Difficulty w/ Childcare or Family Care: No Spiritual care concerns: No Meds Home Medications and Allergies Home Medications ?Medication ?Instructions ?Recorded ?Confirmed ?Type L norgest/E estradiol-E estrad 0.1 1 tablet PO HS 04/02/25 04/02/25 History mg-20 mcg (84)/10 mcg (7) tabs,3mos levothyroxine 50 mcg tablet 50 mcg PO DAILY 04/02/25 04/02/25 History (Euthyrox) lisdexamfetamine 30 mg capsule 30 mg PO DAILY 04/02/25 04/02/25 History Allergies Allergy/AdvReac Type Severity Reaction Status Date / Time Sulfa (Sulfonamide Allergy Mild Hives Verified 04/01/25 23:56 Antibiotics) Vital Signs Vital Signs - 24 hr 04/01/25 23:01 04/01/25 23:15 04/01/25 23:30 Temperature 97.0 F L Pulse Rate 78 72 66 Respiratory Rate 20 12 18 Blood Pressure 127/80 123/77 141/88 H Pulse Oximetry 98 100 100 Oxygen Delivery Room Air 04/01/25 23:45 04/02/25 00:00 04/02/25 00:15 Temperature Pulse Rate 73 77 61 Respiratory Rate 17 19 17 Blood Pressure 129/86 116/79 116/79 Pulse Oximetry 100 100 100 Oxygen Delivery 04/02/25 00:30 04/02/25 00:45 04/02/25 02:03 Temperature Pulse Rate 68 64 83 Respiratory Rate 18 19 12 Blood Pressure 117/85 116/82 110/73 Pulse Oximetry 100 100 100 Oxygen Delivery 04/02/25 03:30 04/02/25 04:00 04/02/25 04:00 Temperature 97.4 F L Pulse Rate 66 70 Respiratory Rate 14 18 Blood Pressure 119/84 127/71 Pulse Oximetry 100 99 Oxygen Delivery Room Air 04/02/25 08:00 Temperature Pulse Rate Respiratory Rate Blood Pressure Pulse Oximetry 99 Oxygen Delivery Room Air Exam Narrative: Abdomen: Slightly tender to deep palpation in the epigastric area. Otherwise normal. Const: General: cooperative and healthy appearing Resp: Effort & Inspection: normal respiratory effort and able to speak in complete sentences Auscultation: clear to auscultation bilaterally Cardio: Rate: regular rate Rhythm: regular rhythm GI: Inspection: normal to inspection GI Palp: No No hepatosplenomegaly present Auscultation: normal bowel sounds Rectal Exam: deferred Skin: General skin exam: normal color Psych: Appearance: grossly normal Mental Status: mental status grossly normal Results Labs 04/02/25 06:05 04/02/25 06:05 Labs: Short CBC 04/01/25 04/02/25 Range/Units 23:12 06:05 WBC 13.3 H 10.6 H (4.5-10.0) K/mm3 Hgb 13.3 12.1 (12.0-15.0) g/dL Hct 40.4 36.7 L (37.0-47.0) % Plt Count 377 H 314 (150-375) k/mm3 BMP 04/01/25 04/02/25 23:12 06:05 Sodium 136 L 131 L Potassium 3.9 3.8 Chloride 101 103 Carbon Dioxide 28 23 BUN 16 10 D Creatinine 0.91 0.68 L Glucose 123 H 132 H Calcium 9.3 7.8 L Liver Function 04/01/25 04/02/25 Range/Units 23:12 06:05 Total Bilirubin 0.3 0.3 (0.2-1.3) mg/dL AST 31 29 (14-36) U/L ALT 18 17 (6-35) U/L Alkaline Phosphatase 48 46 (38-126) U/L Albumin 4.0 3.2 L (3.5-5.1) g/dL Urine 04/02/25 Range/Units 00:32 Urine Color Yellow (Yellow) Urine Appearance Cloudy H (Clear) Urine pH 7.0 (5.0-9.0) Ur Specific [place] 1.019 (1.001-1.035) Urine Protein 1+ H (Negative) mg/dL Urine Glucose (UA) Negative (Negative) mg/dL
--- NOTE | 2025-04-02 16:31 | PHAR ---
HOME MED LEVONORGESTREL AND ETHINYL ESTRADIOL TABLETS (0.1 MG/0.02 MG) AND ETHINYL ESTRADIOL TABLETS 0.01 MG); THEY ARE IN A BLISTER PACK MARKED SUN THRU SAT AND WEEK 9-13. IT IS A FULL PACK AND NONE ARE MISSING. VERIFIED BY PHARMACY.
[2025-04-02] MEDS: ETHINYL ESTRADIOL PO (20:45)
[2025-04-02] MEDS: LEVONORGESTREL PO (20:45)
[2025-04-03] VITALS: BP 110/57; PULSE 72; RESP 14; TEMP 36.6; O2SAT 99
[2025-04-03] MEDS: LACTATED RINGERS 1,000 ML 125 ML IV CONT ×2 (00:12→09:13)
[2025-04-03 04:00] VITALS: BP 121/71; PULSE 77; RESP 13; TEMP 36.4; O2SAT 99
[2025-04-03] MEDS: PROMETHAZINE HCL 25 MG/ML AMPUL 12.5 MG IV PUSH (04:47)
[2025-04-03] MEDS: HYDROmorphone HCL INJ (*CRX) 1 MG/ML SYR 0.5 MG IV PUSH (04:47)
[2025-04-03] MEDS: LEVOTHYROXINE SODIUM 50 MCG TABLET PO (05:35)
[2025-04-03] MEDS: cefTRIAXone 1 GM in SODIUM CHLORIDE 0.9% IV 50 ML 100 ML IVPB (05:37)
[2025-04-03 06:42] LABS: Hematocrit 35.3 % (37.0-47.0); Hemoglobin 11.6 g/dL (12.0-15.0); Immature Granulocyte Percent A 0.3 % (0-0.5); Lymphocytes Absolute Auto 1.69 K/mm3 (0.9-3.2); Mean Corpuscular HGB Conc 32.9 g/dl (32-36); Mean Corpuscular Hemoglobin 31.4 pg (26-34); Mean Corpuscular Volume 95.4 fl (80-100); Nucleated Red Blood Cells Absolute Auto 0.000 K/mm3 (0.0-0.012); Nucleated Red Blood Cells Perc 0.0 % (0.0-0.2); Platelet Count Result 295 k/mm3 (150-375); Red Blood Count 3.70 M/mm3 (4.2-5.4); White Blood Count 9.3 K/mm3 (4.5-10.0)
--- NOTE | 2025-04-03 07:07 | P.PNGI_ITS ---
Progress Note: A&P Assessment and Plan (1) Acute pancreatitis: Code(s): K85.90 - Acute pancreatitis without necrosis or infection, unspecified Status: Acute Assessment and Plan: Patient with acute pancreatitis of unclear etiology. IgG4 levels drawn and pending as well as MRCP to delineate anatomy and rule out IPMN or pancreas divisum. Overall her pancreatitis is under control and is deemed mild, with go od prognosis. Therefore, she is a candidate for early feeding after her MRCP is done. Subjective Date/time seen: 04/03/25 07:07 Interval history: The patient had exacerbation of abdominal pain radiating to the back this morning, required IV analgesics. Exam Narrative: Abdomen: Soft, nontender, nondistended, bowel sounds present. Rest of the exam unchanged. Objective Data Vital Signs Vital Signs: Vital Signs - 24 hr 04/02/25 08:00 04/02/25 14:00 04/02/25 20:00 Temperature 97.6 F 97.7 F Pulse Rate 72 64 Respiratory Rate 18 17 Blood Pressure 125/67 105/63 Pulse Oximetry 99 100 100 Oxygen Delivery Room Air 04/02/25 20:00 04/02/25 22:00 04/02/25 23:20 Temperature 97.7 F Pulse Rate 64 64 Respiratory Rate 17 17 Blood Pressure 105/63 Pulse Oximetry 100 100 100 Oxygen Delivery Room Air Room Air 04/03/25 00:00 04/03/25 04:00 Temperature 97.9 F 97.6 F Pulse Rate 72 77 Respiratory Rate 14 13 Blood Pressure 110/57 L 121/71 Pulse Oximetry 99 99 Oxygen Delivery Intake/Output Intake/Output: Intake & Output 03/31/25 04/01/25 04/02/25 04/03/25 23:59 23:59 23:59 23:59 Intake Total 4340 50 Output Total 0 Balance 4340 50 Meds/Results Medications: Active Medications Generic Name Dose Route Start Last Admin Trade Name Freq PRN Reason Stop Dose Admin Hydromorphone HCl 0.5 mg 04/02/25 04:57 04/03/25 04:47 Hydromorphone Hcl Inj (*Crx) 1 Mg/Ml Syr IV PUSH 0.5 mg Q3H PRN Administration Pain Rated 7-10 Lactated Ringer's 1,000 mls @ 125 mls/hr 04/02/25 05:00 04/03/25 00:12 Lr - Lactated Ringers Iv IV CONT 125 mls/hr .Q8H ONIEL Administration Ceftriaxone Sodium 1 gm/ 50 mls @ 100 mls/hr 04/02/25 05:00 04/03/25 06:07 Sodium Chloride IVPB Infused Q24H ONIEL Infusion Levothyroxine Sodium 50 mcg 04/03/25 06:30 04/03/25 05:35 Levothyroxine Sodium 50 Mcg Tablet PO 50 mcg DAILY@0630 ONIEL Administration L Norgest/E. 1 tablet 04/02/25 21:00 04/02/25 20:45 Estradiol 0.1 Mg-20 PO 05/02/25 20:59 1 tablet Mcg And E. Estradiol HS ONIEL Administration 10 Mcg (7) Tablets Ondansetron HCl 4 mg 04/02/25 04:57 04/02/25 08:33 Ondansetron Inj 4 Mg/2 Ml Vial IV PUSH 4 mg Q4H PRN Administration Nausea And Vomiting Promethazine HCl 12.5 mg 04/02/25 05:33 04/03/25 04:47 Promethazine Hcl 25 Mg/Ml Ampul IV PUSH 12.5 mg Q4H PRN Administration Nausea And Vomiting Radiology Results: ITS Impressions Abdomen/Pelvis CT 04/02/25 06:48 IMPRESSION: 1. Mild acute uncomplicated pancreatitis. Abdomen Ultrasound 04/02/25 15:22 IMPRESSION: 1. Unremarkable study. If symptoms persist or worsen, consider a short-term follow-up study or additional imaging for further assessment. Labs Labs: Laboratory Results - last 24 hr 04/02/25 04/03/25 06:05 06:23 WBC 9.3 RBC 3.70 L Hgb 11.6 L Hct 35.3 L MCV 95.4 MCH 31.4 MCHC 32.9 RDW 11.9 Plt Count 295 MPV 8.9 Immature Gran % (Auto) 0.3 Neut % (Auto) 72.1 Lymph % (Auto) 18.2 L [place] % (Auto) 6.8 Eos % (Auto) 2.0 Baso % (Auto) 0.6 Lymph # (Auto) 1.69 [place] # (Auto) 0.6 Eos # (Auto) 0.2 Baso # (Auto) 0.1 Abs Immat Gran (auto) 0.03 Absolute Neuts (auto) 6.7 Absolute Nucleated RBC 0.000 Nucleated RBC % 0.0 Sodium 131 L Potassium 3.8 Chloride 103 Carbon Dioxide 23 Anion Gap 5 BUN 10 D Creatinine 0.68 L Estim Creat Clear Calc 83 Estimated GFR > 60 Glucose 132 H Calcium 7.8 L Magnesium 1.5 L Total Bilirubin 0.3 AST 29 ALT 17 Alkaline Phosphatase 46 C-Reactive Protein 1.2 H Total Protein 5.9 L Albumin 3.2 L Lipase 45892 H Procalcitonin < 0.0
[2025-04-03 07:08] LABS: Alanine Aminotransferase 13 U/L (6-35); Albumin Level 2.9 g/dL (3.5-5.1); Alkaline Phosphatase 43 U/L (38-126); Anion Gap 4 mmol/L (4-12); Aspartate Amino Transferase 23 U/L (14-36); Bilirubin,Total 0.3 mg/dL (0.2-1.3); Blood Urea Nitrogen 5 mg/dL (7-17); Calcium 8.1 mg/dL (8.4-10.2); Carbon Dioxide 26 mmol/L (22-30); Chloride 105 mmol/L (98-107); Estimated CRCL calculation 73 ml/min; Estimated Glomerular Filt Rate > 60; Glucose 84 mg/dL (65-110); Magnesium 1.8 mg/dL (1.6-2.3); Potassium 3.2 mmol/L (3.4-5.0); Sodium 135 mmol/L (137-145); Total Protein 5.6 g/dL (6.3-8.2)
[2025-04-03 08:00] VITALS: BP 111/67; PULSE 78; RESP 14; TEMP 36.2; O2SAT 100
--- NOTE | 2025-04-03 10:31 | PM.IMPN ---
Progress Note: A&P Assessment and Plan (1) Acute pancreatitis: Code(s): K85.90 - Acute pancreatitis without necrosis or infection, unspecified Status: Acute (2) UTI (urinary tract infection): Code(s): N39.0 - Urinary tract infection, site not specified Status: Acute Plan Pt is admitted from ED with abd pain. She received 4 mg of IV morphine 4 mg IV Zofran 1 L IV fluid bolus with normal saline. Received 20 mg IV Pepcid and 20 mg of IM Bentyl with some improvement of her symptoms. She also has IV Dilaudid PRN. WBC 13.3, lipase level greater than 40,000 - will trend. Triglyceride- 104. Imaging studies obtained included CT abdomen pelvis with IV contrast - acute pancreatitis Other differentials: cholecystitis, pancreatitis, gastritis, appendicitis. She was admitted for pain/nausea control and IV hydration. NPO GI consulted already Med lsit will be reconciled once completed Pt is a full code 04/03- MRCP today 3.2 K- will order IV replacement lipase trending down Time Spent With Patient Time with patient: 25 - 35 minutes Subjective Date/time seen: 04/03/25 10:31 Interval history: MRCP today. Pain is controlled. NPO for now Review of Systems Review of Systems: All systems reviewed & are unremarkable except as noted in HPI and below Exam Narrative: resting with eyes closed. Const: General: comfortable Neck: Thyroid: thyroid normal Resp: Effort & Inspection: normal respiratory effort Auscultation: clear to auscultation bilaterally Cardio: Rate: regular rate Rhythm: regular rhythm Skin: General skin exam: normal color Neuro: Speech: normal speech Motor exam (neuro): 5/5 motor strength present throughout Psych: Mental Status: mental status grossly normal Affect: normal affect Objective Data Vital Signs Vital Signs: Vital Signs - 24 hr 04/02/25 14:00 04/02/25 20:00 04/02/25 20:00 Temperature 97.6 F 97.7 F Pulse Rate 72 64 64 Respiratory Rate 18 17 17 Blood Pressure 125/67 105/63 Pulse Oximetry 100 100 100 Oxygen Delivery Room Air 04/02/25 22:00 04/02/25 23:20 04/03/25 00:00 Temperature 97.7 F 97.9 F Pulse Rate 64 72 Respiratory Rate 17 14 Blood Pressure 105/63 110/57 L Pulse Oximetry 100 100 99 Oxygen Delivery Room Air 04/03/25 04:00 04/03/25 08:00 Temperature 97.6 F 97.2 F L Pulse Rate 77 78 Respiratory Rate 13 14 Blood Pressure 121/71 111/67 Pulse Oximetry 99 100 Oxygen Delivery Intake/Output Intake/Output: Intake & Output 03/31/25 04/01/25 04/02/25 04/03/25 23:59 23:59 23:59 23:59 Intake Total 4340 1050 Output Total 0 Balance 4340 1050 Meds/Results Medications: Active Medications Generic Name Dose Route Start Last Admin Trade Name Freq PRN Reason Stop Dose Admin Hydromorphone HCl 0.5 mg 04/02/25 04:57 04/03/25 04:47 Hydromorphone Hcl Inj (*Crx) 1 Mg/Ml Syr IV PUSH 0.5 mg Q3H PRN Administration Pain Rated 7-10 Lactated Ringer's 1,000 mls @ 125 mls/hr 04/02/25 05:00 04/03/25 09:13 Lr - Lactated Ringers Iv IV CONT 125 mls/hr .Q8H ONIEL Administration Ceftriaxone Sodium 1 gm/ 50 mls @ 100 mls/hr 04/02/25 05:00 04/03/25 06:07 Sodium Chloride IVPB Infused Q24H ONIEL Infusion Potassium Chloride 100 mls @ 25 mls/hr 04/03/25 10:29 Kcl 40 Meq/Water 100 Ml IVPB 04/03/25 14:28 ONCE ONE Levothyroxine Sodium 50 mcg 04/03/25 06:30 04/03/25 05:35 Levothyroxine Sodium 50 Mcg Tablet PO 50 mcg DAILY@0630 ONIEL Administration L Norgest/E. 1 tablet 04/02/25 21:00 04/02/25 20:45 Estradiol 0.1 Mg-20 PO 05/02/25 20:59 1 tablet Mcg And E. Estradiol HS ONIEL Administration 10 Mcg (7) Tablets Ondansetron HCl 4 mg 04/02/25 04:57 04/02/25 08:33 Ondansetron Inj 4 Mg/2 Ml Vial IV PUSH 4 mg Q4H PRN Administration Nausea And Vomiting Promethazine HCl 12.5 mg 04/02/25 05:33 04/03/25 04:47 Promethazine Hcl 25 Mg/Ml Ampul IV PUSH 12.5 mg Q4H PRN Administration Nausea And Vomiting Radiology Results: ITS Impressions Abdomen/Pelvis CT 04/02/25 06:48 IMPRESSION: 1. Mild acute uncomplicated pancreatitis. Abdomen Ultrasound 04/02/25 15:22 IMPRESSION: 1. Unremarkable study. If symptoms persist or worsen, consider a short-term follow-up study or additional imaging for further assessment. Labs Labs: Laboratory Results - last 24 hr 04/03/25 06:23 WBC 9.3 RBC 3.70 L Hgb 11.6 L Hct 35.3 L MCV 95.4 MCH 31.4 MCHC 32.9 RDW 11.9 Plt Count 295 MPV 8.9 Immature Gran % (Auto) 0.3 Neut % (Auto) 72.1 Lymph % (Auto) 18.2 L Travis % (Auto) 6.8 Eos % (Auto) 2.0 Baso % (Auto) 0.6 Lymph # (Auto) 1.69 Travis # (Auto) 0.6 Eos # (Auto) 0.2 Baso # (Auto) 0.1 Abs Immat Gran (auto) 0.03 Absolute Neuts (auto) 6.7 Absolute Nucleated RBC 0.000 Nucleated RBC % 0.0 Sodium 135 L Potassium 3.2 L Chloride 105 Carbon Dioxide 26 Anion Gap 4 BUN 5 L D Creatinine 0.78 Estim Creat Clear Calc 73 Estimated GFR > 60 Glucose 84 Calcium 8.1 L Magnesium 1.8 Total Bilirubin 0.3 AST 23 ALT 13 Alkaline Phosphatase 43 Total Protein 5.6 L Albumin 2.9 L Quality VTE Prophylaxis VTE prophylaxis: mechanical ordered
[2025-04-03] MEDS: POTASSIUM CHLORIDE INJ 40 MEQ in SODIUM CHLORIDE 0.9% IV 500 ML 130 MEQ IVPB (10:48)
[2025-04-03 11:12] LABS: Lipase 826 U/L (23-300)
[2025-04-03 12:00] VITALS: BP 127/76; PULSE 93; RESP 14; TEMP 36.6; O2SAT 100
--- NOTE | 2025-04-03 14:37 | P.DS_ITS ---
DS: Admitting Diagnosis Discharge Date 04/03 Admitting Diagnosis abd pain DS: Discharge Diagnosis Discharge Diagnosis (1) Acute pancreatitis: Code(s): K85.90 - Acute pancreatitis without necrosis or infection, unspecified Status: Acute (2) UTI (urinary tract infection): Code(s): N39.0 - Urinary tract infection, site not specified Status: Acute Plan Pt is admitted from ED with abd pain. She received 4 mg of IV morphine 4 mg IV Zofran 1 L IV fluid bolus with normal saline. Received 20 mg IV Pepcid and 20 mg of IM Bentyl with some improvement of her symptoms. She also has IV Dilaudid PRN. WBC 13.3, lipase level greater than 40,000 - will trend. Triglyceride- 104. Imaging studies obtained included CT abdomen pelvis with IV contrast - acute pancreatitis Other differentials: cholecystitis, pancreatitis, gastritis, appendicitis. She was admitted for pain/nausea control and IV hydration. NPO GI consulted already Med lsit will be reconciled once completed Pt is a full code 04/03- MRCP today 3.2 K- will order IV replacement lipase trending down DS: Summary Hospital Course Hospital Course: 44-year-old female admitted from ED with severe abdominal pain which started yesterday. She never had similar episodes in the past, no abdominal surgeries. Pain was generalized. Patient reports nausea, vomiting and some loose stools as well. C-reactive protein of 1.2, transaminases and triglyceride levels were within normal limits. A CT scan showed mild interstitial pancreatitis, and a subsequent abdominal ultrasound revealed a normal gallbladder with no stones or sludge. IgG4 levels drawn and pending- please f/u with GI for results and further workup/evaluation. MRCP: Radiographically uncomplicated acute interstitial pancreatitis.. Pt pain is well controlled, diet was advanced and she was tolerating clears well. OK to discharge if tolerating dinner and no abd pain/nausea. F/u with GI Status at Discharge Functional status at discharge: independent ambulation Overall status at discharge: patient is progressing back to baseline Time Spent with Patient Time attestation: Total time spent providing and/or coordinating discharge services: Time spent: Greater than 30 minutes Exam Narrative: resting with eyes closed. Const: General: comfortable Neck: Thyroid: thyroid normal Resp: Effort & Inspection: normal respiratory effort Auscultation: clear to auscultation bilaterally Cardio: Rate: regular rate Rhythm: regular rhythm Skin: General skin exam: normal color Neuro: Speech: normal speech Motor exam (neuro): 5/5 motor strength present throughout Psych: Mental Status: mental status grossly normal Affect: normal affect DS: Data Data Completed and Pending Completed studies during hospitalization: mrcp Labs on day of discharge: Labs from last 24 hours 04/03/25 04/03/25 04/02/25 06:23 06:22 16:23 WBC 9.3 RBC 3.70 L Hgb 11.6 L Hct 35.3 L MCV 95.4 MCH 31.4 MCHC 32.9 RDW 11.9 Plt Count 295 MPV 8.9 Immature Gran % (Auto) 0.3 Neut % (Auto) 72.1 Lymph % (Auto) 18.2 L [place] % (Auto) 6.8 Eos % (Auto) 2.0 Baso % (Auto) 0.6 Lymph # (Auto) 1.69 [place] # (Auto) 0.6 Eos # (Auto) 0.2 Baso # (Auto) 0.1 Abs Immat Gran (auto) 0.03 Absolute Neuts (auto) 6.7 Absolute Nucleated RBC 0.000 Nucleated RBC % 0.0 Sodium 135 L Potassium 3.2 L Chloride 105 Carbon Dioxide 26 Anion Gap 4 BUN 5 L D Creatinine 0.78 Estim Creat Clear Calc 73 Estimated GFR > 60 Glucose 84 Calcium 8.1 L Magnesium 1.8 Total Bilirubin 0.3 AST 23 ALT 13 Alkaline Phosphatase 43 Total Protein 5.6 L Albumin 2.9 L Lipase 826 H IgG Pending IgG Subclass 1 Pending IgG Subclass 2 Pending IgG Subclass 3 Pending IgG Subclass 4 Pending Discharge Plan Discharge Attending physician on discharge: Brendan Moody Consulting providers: Gomez Dominguez Discharging Clinician: Sheila Cárdenas Patient Disposition: Home Activity: december shower Diet: low fat Discharge Instructions: You were admitted with acute pancreatitis of unclear etiology. IgG4 levels drawn and pending- please f/u with GI for results and further workup/evaluation. MRCP: Radiographically uncomplicated acute interstitial pancreatitis.. Patient Instructions: Antibiotic Form Patient Language: Swedish Stand Alone Forms: General Discharge Information Follow-up/Referrals: Juan M,Tre Wright MD [Primary Care Provider] - 2 Weeks Gomez Dominguez MD [Physician, Gastroenterology] - 2 Weeks Discharge Medications: New ondansetron 4 mg tablet,disintegrating 4 mg PO Q8H PRN (Reason: nausea and vomiting) Qty: 10 0RF ketorolac 10 mg tablet 10 mg PO Q8H PRN (Reason: pain) Qty: 7 0RF Rx Instructions: maximum total duration of 5 days from all oral, intranasal, or parenteral formulations Continued levothyroxine [Euthyrox] 50 mcg tablet 50 mcg PO DAILY L norgest/e.estradiol-e.estrad 0.1 mg-20 mcg (84)/10 mcg (7) tablets,dose pack,3 month 1 tablet PO HS lisdexamfetamine 30 mg capsule 30 mg PO DAILY Date of admission: 04/02/25 02:53 Primary Care Provider: Juan MTre Admitting Provider: Jc Vidal Attending physician on admission: Jc Vidal Condition: Improved Quality VTE Prophylaxis VTE prophylaxis: mechanical ordered Hospitalist MIPS Heart Failure (Exclusion) Patient has history of Heart Transplant or Left Ventricular Assistive Device?: No IF YES, STOP HERE Heart Failure (Qualifier) Patient has current or prior documentation of LVEF less than or equal to 40%, or mod/servere depressed LVSF?: No IF NO, STOP HERE
[2025-04-03 16:00] VITALS: BP 124/68; PULSE 88; RESP 15; TEMP 36.6; O2SAT 100
[2025-04-03 18:08] LABS: IgG, Subclass 1 509 mg/dL (248-810); IgG, Subclass 2 257 mg/dL (130-555); IgG, Subclass 3 22 mg/dL (15-102); IgG, Subclass 4 52 mg/dL (2-96); Immunoglobulin G, Qn 942 mg/dL (586-1602)
== END 2025-04-03 18:45 | disposition home or self-care (01) | DRG 439 ==
LOC: ANHED 04-02 00:49 → ANH3MEDSUR 04-02 03:25
PROVIDERS: Internal Medicine Gastroenterology; Nurse Practitioner; Admitting Provider Internal Medicine; Emergency Provider Emergency Medicine; PCP Internal Medicine; Visit Provider Nurse Practitioner
DX: K85.90 Acute pancreatitis without necrosis or infection, unspecified (principal); N39.0 Urinary tract infection, site not specified; E03.9 Hypothyroidism, unspecified; K90.0 Celiac disease; F90.9 Attention-deficit hyperactivity disorder, unspecified type
CPT/HCPCS: 36415; 74177; 74183; 76376; 76705; 80053; 81001; 81025; 82784; 82787; 83036; 83690; 83735; 84145; 84478; 84703; 85025; 85652; 86140; 87086; 93005; 96361; 96365; 96372; 96375; 99285; A9270; A9577; J0500; J0696; J1171; J2270; J2405; J2550; J3480; J7030; J7040; J7120; Q9967